=== PATIENT | female | born 1990 | race Caucasian/White ===

== ENCOUNTER 2020-09-30 13:49 | Emergency (ER) | payer BC, SELFPAY ==
[2020-09-30 13:55] VITALS: BP 150/71; PULSE 88; RESP 20; TEMP 36.6; O2SAT 99
--- NOTE | 2020-09-30 14:14 | ED.DENTAL ---
HPI - Dental/Oral General Chief complaint: Dental/Oral Stated complaint: tooth ache Time Seen by Provider: 09/30/20 14:14 Source: patient and RN notes reviewed Mode of arrival: ambulatory Limitations: no limitations History of Present Illness HPI Narrative: 30-year-old female who presents to [facility] care with complaints of dental pain to the right upper last molar for the past 4 days. Patient states that she saw [facility] in [facility] and she states that she had x-ray's and was told she needed to have an oral surgeon to remove the tooth. Patient states that she has been taking Tylenol and Advil rotating with mild pain decrease in the daytime but is ineffective to keep pain down at night. Patient states that there was a hard area to tissue on gums around #1 tooth that popped on Wednesday.Patient denies any known fevers, no trismus noted, denies any difficulty with swallowing or problems with her breathing. MD Complaint: tooth pain Location: Tooth # (#1) Onset (ago): day(s) (4) Duration: constant Severity: severe Severity scale (1-10): 8 Relieving factors: NSAIDs (helps decrease pain some) Exacerbating factors: chewing and cold Context: history of dental caries and poor dental care Associated symptoms: gum swelling Treatment prior to arrival: oral analgesic Related Data Allergies Allergy/AdvReac Type Severity Reaction Status Date / Time No Known Allergies Allergy Verified 09/30/20 14:11 Review of Systems Review of Systems: Narrative: CONSTITUTIONAL: Denies fever, chills, or sweats. EYES: Denies visual changes, redness, or discharge. ENT: Denies rhinorrhea, congestion, sore throat, or otalgia.positive for dental pain with gums swelling CARDIOVASCULAR: Denies chest pain, palpitations, or edema. RESPIRATORY: Denies cough or dyspnea. GASTROINTESTINAL: Denies abdominal pain, nausea, vomiting, or diarrhea. GENITOURINARY: Denies dysuria or hematuria. SKIN: Denies rash or itching. MUSCULOSKELETAL: Denies back pain, joint pain, or myalgia. NEUROLOGIC: Denies headache, numbness, or weakness. PSYCHIATRIC: Denies anxiety or depression. All systems reviewed & are unremarkable except as noted in HPI and below PMFSH Past Medical History Medical History (Updated 10/01/20 @ 10:45 by Neva Whitney NP) History of dental problems Loss of teeth due to extraction Social History Social History (Updated 10/01/20 @ 10:46 by Neva Whitney NP) Smoking packs per day: 0.5 Smoking cigarettes per day: 10.0 Years smoked: 5 Smoking pack-years: 2.50 Smoking status: Current every day smoker Tobacco type: cigarettes Alcohol intake: unknown Substance use: unknown Living arrangements: with family Gender identity (if verbalized by the patient): Female Comments At time of signature, agree with nursing past medical, surgical, social history. There is no relevant family history pertinent to the presenting complaint Exam Narrative: Exam Narrative: GENERAL: Well-appearing, well-nourished, and in no acute distress. HEAD: Normocephalic, atraumatic. EYES: PERRLA and EOMI. ENT: Nares clear, no rhinorrhea or epistaxis. Mucous membranes moist.TM's normal with good light reflex, throat pink with no lesions or exudates, no tonsil swelling. #1 tooth broken with red gums with swelling noted around tooth, other missing teeth noted, no trismus or evidence of John angina, no facial edema noted. NECK: Supple.no lymphadenopathy CHEST: Clear to auscultation. No respiratory distress.IRENE 99% on room air. HEART: Regular rate and rhythm. No murmur heard. Normal peripheral pulses. ABDOMEN: Soft, nontender, nondistended, normal active bowel sounds. EXTREMITIES: Normal range of motion. No edema. SKIN: Warm, dry, no rash. NEURO: No focal deficits. Alert and oriented x3. Course Vital Signs Vital signs: Vital Signs Temperature 36.6 C 09/30/20 13:55 Pulse Rate 88 09/30/20 13:55 Respiratory Rate 20 09/30/20 13:55
== END 2020-09-30 14:35 | disposition home or self-care (01) ==
PROVIDERS: Emergency Provider Registered Nurse
DX: K04.7 Periapical abscess without sinus (principal); F17.210 Nicotine dependence, cigarettes, uncomplicated
CPT/HCPCS: 99213; G0463